=== PATIENT | female | born 1980 | race African-American/Black ===

== ENCOUNTER 2016-12-28 08:44 | Emergency (ER) | payer MEDICAID ==
[~2016-12-28] VITALS: Ht 154.9 cm; Wt 80.0 kg
[~2016-12-28 08:44] MED LIST: DIFL150T PO
[2016-12-28 08:46] VITALS: BP 136/86; PULSE 88; RESP 15; TEMP 98.1; O2SAT 99
[2016-12-28 10:30] VITALS: RESP 17; O2SAT 99
[2016-12-28] MEDS ORDERED: DICYCLOMINE HCL 10 MG CAP PO ONE (10:30)
[2016-12-28] MEDS ORDERED: SODIUM CHLORIDE 0.9% FLUSH 5 ML FLUSH IVF PRN (10:30)
[2016-12-28 10:54] LABS: AUTOMATED NEUTROPHIL # 4.3 TH/MM3 (1.8-7.7); BASOPHIL % 0.4 % (0.0-2.0); EOSINOPHIL # 0.2 TH/MM3 (0-0.4); EOSINOPHIL % 2.6 % (0.0-4.0); HEMATOCRIT 37.5 % (35.0-46.0); HEMO FLAGS DIFF FINAL; LYMPH % 20.2 % (9.0-44.0); LYMPHOCYTE # 1.2 TH/MM3 (1.0-4.8); MEAN CELL VOLUME 92.5 FL (80.0-100.0); MEAN CORPUSCULAR HGB CONC 33.6 % (32.0-36.0); MONO % 6.6 % (0.0-8.0); NEUT % 70.2 % (16.0-70.0); PLATELET COUNT 227 TH/MM3 (150-450); RED BLOOD COUNT 4.06 MIL/MM3 (4.00-5.30); RED CELL DISTRIBUTION WIDTH 14.5 % (11.6-17.2); WHITE BLOOD COUNT 6.1 TH/MM3 (4.0-11.0)
[2016-12-28 10:56] LABS: BACTERIA, URINE RARE /hpf; BLOOD, URINE NEG (NEG); COMMENT (UR) CULT NOT INDICATED; CULTURE IF INDICATED CULT NOT INDICATED; GLUCOSE,URINE NEG (NEG); KETONE, URINE NEG (NEG); MUCUS URINE FEW /lpf (OCC); NITRITE,URINE NEG (NEG); PH, URINE 5.5 (5.0-8.5); SQUAMOUS EPITHELIAL CELL URINE <1 /hpf (0-5); URINE COLOR YELLOW (YELLW/STRAW)
[2016-12-28 11:40] LABS: ANION GAP 9 MEQ/L (5-15); AST (GOT) 7 U/L (15-37); BICARBONATE 27.1 MEQ/L (21.0-32.0); BLOOD UREA NITROGEN 11 MG/DL (7-18); CHLORIDE 103 MEQ/L (98-107); GLOMERULAR FILTRATION RATE 136 ML/MIN (>89); SODIUM (NA) 139 MEQ/L (136-145)
[2016-12-28 11:43] LABS: ALKALINE PHOSPHATASE 56 U/L (45-117); ALT (GPT) 17 U/L (10-53); TOTAL BILIRUBIN ADULT 0.3 MG/DL (0.2-1.0)
--- NOTE | 2016-12-28 11:46 | PD ---
HPI Chief Complaint: GI Complaint Time Seen by Provider: 10:23 Travel History International Travel<30 days: No Contact w/Intl Traveler<30days: No Traveled to known affect area: No History of Present Illness HPI Diagnoses a 36-year-old female who presents today with complaints of abdominal cramps with diarrhea. Patient denies any fevers, chills. Patient reports that she's had diarrhea since December 20. She denies any blood in her stool. She denies any ill contacts. She denies any recent antibiotic use. She states that the abdominal cramps present when she is about to have a bowel movement. PFSH Past Medical History Diminished Hearing: No Gastrointestinal Disorders: Yes (GASTRIC ULCER) Neurologic: No Immunizations Current: Yes Tetanus Vaccination: > 5 Years Influenza Vaccination: No ?: Not LMP: 12/18/16 : 5 Para: 4 Miscarriage: 1 Ectopic : Yes Past Surgical History Section: Yes (X1) Gynecologic Surgery: Yes (c section) Social History Alcohol Use: Yes (OCASSIONALLY) Tobacco Use: Yes (1/2 PPD) Substance Use: No Allergies-Medications (Allergen,Severity, Reaction): Coded Allergies: No Known Allergies (Verified , 12/28/16) Reported Meds & Prescriptions Reported Meds & Active Scripts Active Bentyl (Dicyclomine HCl) 10 Mg Cap 10 Mg PO TID PRN Review of Systems Except as stated in HPI: all other systems reviewed are Neg General / Constitutional: No: Fever, Chills HENT: No: Headaches, Lightheadedness Cardiovascular: No: Chest Pain or Discomfort, Palpitations Respiratory: No: Cough, Shortness of Breath Gastrointestinal: Positive: Diarrhea, Abdominal Pain (abdominal cramps), Loss of Appetite, No: Nausea, Vomiting Genitourinary: No: Dysuria Musculoskeletal: No: Weakness Neurologic: No: Weakness, Headache, Change in Mentation Physical Exam Narrative GENERAL: Well-nourished, well-developed patient. SKIN: Warm and dry. HEAD: Normocephalic/atraumatic. EYES: No injection or drainage. NECK: Supple, trachea midline. CARDIOVASCULAR: Regular rate and rhythm without murmurs, gallops, or rubs. RESPIRATORY: Breath sounds equal bilaterally. No accessory muscle use. GASTROINTESTINAL: Abdomen soft, non-tender, nondistended. No rebound or guarding. MUSCULOSKELETAL: No cyanosis, or edema. NEUROLOGICAL: Awake and alert. Cranial nerves II through XII intact. Motor grossly within normal limits. Five out of 5 muscle strength in all muscle groups. Normal speech. Data Data Last Documented VS Vital Signs Date Time Temp Pulse Resp B/P Pulse Ox O2 Delivery O2 Flow Rate FiO2 12/28/16 10:30 17 99 Room Air 12/28/16 08:46 98.1 88 136/86 Orders Complete Blood Count With Diff (12/28/16 10:25) Comprehensive Metabolic Panel (12/28/16 10:25) Urinalysis - C+S If Indicated (12/28/16 10:25) Lipase (12/28/16 10:25) Iv Access Insert/Monitor (12/28/16 10:25) Ecg Monitoring (12/28/16 10:25) Oximetry (12/28/16 10:25) Sodium Chloride 0.9% Flush (Ns Flush) (12/28/16 10:30) C Diff Toxin Pcr (12/28/16 10:25) Enteric Path (Stool) (12/28/16 10:25) Dicyclomine (Bentyl) (12/28/16 10:30) Labs Laboratory Tests Test 12/28/16 12/28/16 10:21 11:13 White Blood Count 6.1 TH/MM3 Red Blood Count 4.06 MIL/MM3 Hemoglobin 12.6 GM/DL Hematocrit 37.5 % Mean Corpuscular Volume 92.5 FL Mean Corpuscular Hemoglobin 31.0 PG Mean Corpuscular Hemoglobin 33.6 % Concent Red Cell Distribution Width 14.5 % Platelet Count 227 TH/MM3 Mean Platelet Volume 8.7 FL Neutrophils (%) (Auto) 70.2 % Lymphocytes (%) (Auto) 20.2 % Monocytes (%) (Auto) 6.6 % Eosinophils (%) (Auto) 2.6 % Basophils (%) (Auto) 0.4 % Neutrophils # (Auto) 4.3 TH/MM3 Lymphocytes # (Auto) 1.2 TH/MM3 Monocytes # (Auto) 0.4 TH/MM3 Eosinophils # (Auto) 0.2 TH/MM3 Basophils # (Auto) 0.0 TH/MM3 CBC Comment DIFF FINAL Differential Comment Urine Color YELLOW Urine Turbidity CLEAR Urine pH 5.5 Urine Specific [place] 1.023 Urine Protein NEG mg/dL Urine Glucose (UA) NEG mg/dL Urine Ketones NEG mg/dL Urine Occult Blood NEG Urine Nitrite NEG Urine Bilirubin NEG Urine Urobilinogen LESS THAN 2.0 MG/DL Urine Leukocyte Esterase NEG Urine RBC 1 /hpf Urine WBC LESS THAN 1 /hpf Urine Squamous Epithelial <1 /hpf Cells Urine Bacteria RARE /hpf Urine Mucus FEW /lpf Microscopic Urinalysis Comment CULT NOT INDICATED Sodium Level 139 MEQ/L Potassium Level 4.0 MEQ/L Chloride Level 103 MEQ/L Carbon Dioxide Level 27.1 MEQ/L Anion Gap 9 MEQ/L Blood Urea Nitrogen 11 MG/DL Creatinine 0.61 MG/DL Estimat Glomerular Filtration 136 ML/MIN Rate Random Glucose 88 MG/DL Calcium Level 8.2 MG/DL Total Bilirubin 0.3 MG/DL Aspartate Amino Transf 7 U/L (AST/SGOT) Alanine Aminotransferase 17 U/L (ALT/SGPT) Alkaline Phosphatase 56 U/L Total Protein 7.0 GM/DL Albumin 3.4 GM/DL Lipase 138 U/L [facility] Medical Decision Making Medical Screen Exam Complete: Yes Emergency Medical Condition: Yes Differential Diagnosis Viral gastroenteritis versus bacterial gastroenteritis versus C. difficile Narrative Course 36-year-old female who reports diarrhea 8 days. The patient has a soft abdomen on exam. Laboratory tests are within normal limits. She has had no bowel movement and his been here for nearly 4 hours. She's been given one dose of Bentyl which is greatly improved her cramps. She'll be instructed to start with clear liquids and advance as tolerated. She'll be given a prescription for Bentyl Diagnosis Primary Impression: diarrhea resolved Scripts Dicyclomine (Bentyl)10 Mg Cap10 Mg PO TID PRN (Bowel Management) #12 CAP Ref 0 Prov:Shola Rogel MD 12/28/16 Disposition: DISCHARGE HOME Condition: Stable Shola Rogel MD Dec 28, 2016 11:46
[2016-12-28] MEDS ORDERED: DICY10 PO (14:00)
[2016-12-28 14:32] VITALS: BP 110/68; TEMP 97.8
== END 2016-12-28 14:32 | disposition home or self-care (01) ==
LOC: NEPE 08:44
DX: R19.7 Diarrhea, unspecified (principal); F17.210 Nicotine dependence, cigarettes, uncomplicated
CPT/HCPCS: 80053; 81001; 83690; 85025; 99284